=== PATIENT | male | born 1955 | race African-American/Black ===

== ENCOUNTER 2018-03-24 09:21 | Day surgery (SDC) | payer BC ==
[2018-03-23 13:49] VITALS: BMI 39.0
[2018-03-24] MEDS ORDERED: PROPOFOL 200 MG/20 ML VIAL ONE (10:30)
[2018-03-24] MEDS ORDERED: Lidocaine 1% PF 5 ML VIAL ONE (10:30)
[2018-03-24] MEDS ORDERED: Glycopyrrolate 0.2 MG/ML 5 ML SYRINGE ONE (10:30)
[2018-03-24] MEDS ORDERED: Ondansetron HCl/PF 4 MG/2 ML Vial ONE (10:30)
[2018-03-24] MEDS ORDERED: CEFAZOLIN/Water 2 GM/20 ML SYRINGE ONE (10:41)
[2018-03-24] MEDS ORDERED: Bupivacaine/Epinephrine 0.25% 30 ML VIAL ONE (11:04)
[2018-03-24] MEDS ORDERED: Fentanyl 100 MCG/2 ML VIAL ONE (11:26)
[2018-03-24] MEDS ORDERED: Promethazine HCl 25 MG/ML VIAL ONE (11:27)
[2018-03-24] MEDS ORDERED: HYDROmorphone 2 MG/ML VIAL ONE (11:27)
--- NOTE | 2018-03-25 11:24 | OP ---
DATE OF SERVICE: 03/24/2018 PREOPERATIVE DIAGNOSIS: Ventral hernia. POSTOPERATIVE DIAGNOSES: Ventral hernia. PROCEDURE: Ventral hernia repair with mesh, Ventralex ST small 4 cm. SURGEON: Pawel Bunn M.D. ESTIMATED BLOOD LOSS: Minimal. COMPLICATIONS: None. SPECIMEN: None. FINDINGS: Small ventral upper abdominal hernia. TECHNIQUE: The patient was taken to the operating room and placed supine on the table. After genera l anesthetic was obtained, the abdomen shaved, prepped, and draped in a sterile fashion. straight in cision made over the palpable abnormality in the upper midline of abdomen and cut dissect down to the hernia sac. The hernia sac was traced back to the abdominal cavity. There is a 1 cm defect. The s mall Ventralex ST mesh brought into the sterile field. The underlay was placed in the preperitoneal space, its tails were laid out laterally. The tails were sewn via U stitch of Ethibond to the fascia l edges. The fascia was closed loosely over the mesh. The wound was irrigated. Local anesthetic wa s applied. The wound was closed using 3-0 Vicryl, 4-0 Monocryl, and Dermabond. The patient was en r oute to recovery in stable condition. All instrument counts, needle counts, lap counts are correct.
== END 2018-03-24 14:50 | disposition home or self-care (01) ==
LOC: SDC 09:21
PROVIDERS: ATTEND Surgery
PROC: 0WUF0JZ Supplement Abdominal Wall with Synthetic Substitute, Open Approach (ICD-10-PCS; principal; 2018-03-24)
DX: K43.9 Ventral hernia without obstruction or gangrene (principal); E11.9 Type 2 diabetes mellitus without complications; Z79.82 Long term (current) use of aspirin; Z79.84 Long term (current) use of oral hypoglycemic drugs; Z79.899 Other long term (current) drug therapy
CPT/HCPCS: J1170; J2001; J2405; J2550; J2704; J3010